=== PATIENT | female | born 1965 | race Caucasian/White ===

== ENCOUNTER 2018-01-07 15:55 | Emergency (ER) | payer OTHER ==
[2018-01-07 17:25] LABS: ABS Basophils 0.1 10^3/ul (0-0.2); ABS Eosinophils 0.1 10^3/ul (0-0.6); ABS Lymphocytes 1.9 10^3/ul (1.0-4.8); ABS Monocytes 0.5 10^3/ul (0-0.8); ABS Nucleated RBC 0 10^3/ul; Eosinophil % 1.5 % (0-6); Hematocrit 32 % (35-47); Hemoglobin 10.8 g/dl (12.0-16.0); Lymphocyte % 22.5 % (25-47); Mean Corpuscular HGB Conc 34 g/dl (31-36); Mean Corpuscular Hemoglobin 30 pg (27-31); Mean Corpuscular Volume 88 fL (80-97); Mean Platelet Volume 7.9 um3 (7.4-10.4); Nucleated Red Blood Cells % 0.2; Platelet Count 248 10^3/ul (150-450); Red Blood Count 3.56 10^6/ul (4.00-5.40); Red Cell Distribution Width 13 % (10.5-15); White Blood Count 8.6 10^3/ul (3.5-10.8)
[2018-01-07 17:41] LABS: EGFR Non-African American 112.8 (>60)
--- NOTE | 2018-01-07 18:52 | ED ---
GI/ HPI - HPI Summary HPI Summary: Patient complains of diarrhea yesterday and possible rectal bleeding starting this a.m. Patient states she is passing "blood clots". Denies history of same. Denies diarrhea today. Positive history of hemorrhoids. Denies pain with bowel movement. Blood is dark red, gelatinous. Denies fever, cough, sore throat, CP, SOB, N/V, abdominal pain, change in urine, vaginal symptoms. History is none. Abdominal surgical history is none. - History of Current Complaint Chief Complaint: EDGIBleed Time Seen by Provider: 01/07/18 17:08 Stated Complaint: BLOOD IN STOOL Hx Obtained From: Patient Onset/Duration: Started Hours Ago Timing: Intermittent Current Severity: None Vaginal Bleeding Description: Dark Red Pain Intensity: 0 Associated Signs and Symptoms: Positive: Blood w/Stool, Diarrhea - Allergy/Home Medications Allergies/Adverse Reactions: Allergies Allergy/AdvReac Type Severity Reaction Status Date / Time No Known Allergies Allergy Verified 01/07/18 16:03 PMH/Surg Hx/FS Hx/Imm Hx Endocrine/Hematology History: Denies: Hx Anticoagulant Therapy Cardiovascular History: Reports: Hx Hypertension - ON MEDS, WELL CONTROLLED Denies: Other Cardiovascular Problems/Disorders Respiratory History: Reports: Hx Asthma - WILL BRING INHALER Denies: Other Respiratory Problems/Disorders GI History: Reports: Hx Gastroesophageal Reflux Disease - ON DAILY MEDS Denies: Other GI Disorders Musculoskeletal History: Reports: Hx Arthritis - HANDS, KNEES, Hx Tendonitis - Hx OF LEFT ELBOW, OK CURRENTLY Sensory History: Denies: Hx Contacts or Glasses, Hx Hearing Aid Opthamlomology History: Denies: Hx Contacts or Glasses Neurological History: Reports: Hx Migraine - HORMONE RELATED Denies: Other Neuro Impairments/Disorders - Cancer History Hx Chemotherapy: No Hx Radiation Therapy: No - Surgical History Surgery Procedure, Year, and Place: 2011, SINUS, [facility]. 2012, LIPOMA RIGHT SHOULDER, [facility]. 1967, BLADDER DILATION, [facility]. 08/2014 RIGHT CARPAL TUNNEL RELEASE [facility] Hx Anesthesia Reactions: No Infectious Disease History: No Infectious Disease History: Denies: Traveled Outside the [place] in Last 30 Days - Social History Alcohol Use: Occasionally Alcohol Amount: 3 PER MONTH Substance Use Type: Reports: None Smoking Status (MU): Never Smoked Tobacco Have You Smoked in the Last Year: No Review of Systems Constitutional: Negative Eyes: Negative ENT: Negative Cardiovascular: Negative Respiratory: Negative Gastrointestinal: Negative Genitourinary: Negative Musculoskeletal: Negative Skin: Negative Neurological: Negative Psychological: Normal All Other Systems Reviewed And Are Negative: Yes Physical Exam Triage Information Reviewed: Yes Vital Signs On Initial Exam: Initial Vitals Temp Pulse Resp BP Pulse Ox 97.7 F 78 14 177/93 99 01/07/18 15:59 01/07/18 15:59 01/07/18 15:59 01/07/18 15:59 01/07/18 15:59 Vital Signs Reviewed: Yes Appearance: Positive: Well-Appearing Skin: Positive: Warm Head/Face: Positive: Normal Head/Face Inspection Eyes: Positive: Normal Neck: Positive: Supple Respiratory/Lung Sounds: Positive: Clear to Auscultation Cardiovascular: Positive: Normal Abdomen Description: Positive: Nontender Musculoskeletal: Positive: Normal Neurological: Positive: Normal Psychiatric: Positive: Normal AVPU Assessment: Alert - Dinora Coma Scale Best Eye Response: 4 - Spontaneous Best Motor Response: 6 - Obeys Commands Best Verbal Response: 5 - Oriented Coma Scale Total: 15 Diagnostics - Vital Signs Vital Signs Temp Pulse Resp BP Pulse Ox 01/07/18 18:07 74 135/90 98 01/07/18 18:00 75 98 01/07/18 17:37 76 149/89 97 01/07/18 17:04 80 97 01/07/18 15:59 97.7 F 78 14 177/93 99 - Laboratory Lab Results: Lab Results 01/07/18 01/07/18 Range/Units 17:14 17:14 WBC 8.6 (3.5-10.8) 10^3/ul RBC 3.56 L (4.00-5.40) 10^6/ul Hgb 10.8 L (12.0-16.0) g/dl Hct 32 L (35-47) % MCV 88 (80-97) fL MCH 30 (27-31) pg MCHC 34 (31-36) g/dl RDW 13 (10.5-15) % Plt Count 248 (150-450) 10^3/ul MPV 7.9 (7.4-10.4) um3 Neut % (Auto) 69.3 (38-83) % Lymph % (Auto) 22.5 L (25-47) % [place] % (Auto) 6.0 (0-7) % Eos % (Auto) 1.5 (0-6) % Baso % (Auto) 0.7 (0-2) % Absolute Neuts (auto) 6.0 (1.5-7.7) 10^3/ul Absolute Lymphs (auto) 1.9 (1.0-4.8) 10^3/ul Absolute Monos (auto) 0.5 (0-0.8) 10^3/ul Absolute Eos (auto) 0.1 (0-0.6) 10^3/ul Absolute Basos (auto) 0.1 (0-0.2) 10^3/ul Absolute Nucleated RBC 0 10^3/ul Nucleated RBC % 0.2 Sodium 139 (135-145) mmol/L Potassium 3.5 (3.5-5.0) mmol/L Chloride 106 (101-111) mmol/L Carbon Dioxide 27 (22-32) mmol/L Anion Gap 6 (2-11) mmol/L BUN 13 (6-24) mg/dL Creatinine 0.56 (0.51-0.95) mg/dL Est GFR ( Amer) 136.5 (>60) Est GFR (Non-Af Amer) 112.8 (>60) BUN/Creatinine Ratio 23.2 H (8-20) Glucose 106 H (70-100) mg/dL Calcium 9.0 (8.6-10.3) mg/dL Total Bilirubin 0.40 (0.2-1.0) mg/dL AST 16 (13-39) U/L ALT 17 (7-52) U/L Alkaline Phosphatase 63 (34-104) U/L C-Reactive Protein 3.05 (<8.01) mg/L Total Protein 6.2 L (6.4-8.9) g/dL Albumin 3.9 (3.2-5.2) g/dL Globulin 2.3 (2-4) g/dL Albumin/Globulin Ratio 1.7 (1-3) Result Diagrams: 01/07/18 17:14 01/07/18 17:14 Lab Statement: Any lab studies that have been ordered have been reviewed, and results considered in the medical decision making process. GIGU Course/Dx - Course Course Of Treatment: Patient complains of diarrhea yesterday and possible rectal bleeding starting this a.m. Patient states she is passing "blood clots". Denies history of same. Denies diarrhea today. Positive history of hemorrhoids. Denies pain with bowel movement. Blood is dark red, gelatinous. Denies fever, cough, sore throat, CP, SOB, N/V, abdominal pain, change in urine , vaginal symptoms. History is none. Abdominal surgical history is none. Vital signs within normal limits. Patient brought sample of "blood clot" which appeared dark red. Hemoccult negative. Hemoglobin 10.8. Only prior H&H comparison data from 2014. Advised patient to return for any concerning symptoms including weakness, shortness of breath, fatigue, persistent bleeding. Advise follow-up with GI tomorrow morning. Patient understands and approves plan - Diagnoses Provider Diagnoses: Rectal bleed Discharge - Sign-Out/Discharge Documenting (check all that apply): Patient Departure - Discharge Plan Condition: Stable Disposition: HOME Patient Education Materials: Rectal Bleeding (ED) Referrals: Sarkis Brady MD [Primary Care Provider] - Nilson Walters MD [Medical Doctor] - Additional Instructions: Follow-up on Monday with either primary care or gastroenterology Dr. Walters for further evaluation of possible rectal bleeding. Return to the ED for any new or worsening symptoms - Billing Disposition and Condition Condition: STABLE Disposition: Home
[2018-01-07 19:18] VITALS: BP 143/85
== END 2018-01-07 19:17 | disposition home or self-care (01) ==
LOC: ED 15:55
DX: K62.5 Hemorrhage of anus and rectum (principal); I10 Essential (primary) hypertension; J45.909 Unspecified asthma, uncomplicated; K21.9 Gastro-esophageal reflux disease without esophagitis
CPT/HCPCS: 36415; 80053; 82270; 85025; 86140; 99282

== ENCOUNTER 2020-03-09 05:12 | Inpatient (IN) ==
[2020-03-09] MEDS ORDERED: Ondansetron 4 mg VIAL 2 MG/ML 2 ml VIAL IV ONE (06:43)
[2020-03-09 07:41] LABS: Albumin 2.2 g/dL (3.2-5.2); Albumin/Globulin Ratio 0.8 (1-3); BUN/Creatinine Ratio 45.5 (8-20); C Reactive Protein 335.2 mg/L (<8.01); Calcium 7.9 mg/dL (8.6-10.3); EGFR African American 138.3 (>60); EGFR Non-African American 114.3 (>60); Globulin 2.9 g/dL (2-4); Magnesium 1.9 mg/dL (1.9-2.7); Potassium 4.9 mmol/L (3.5-5.0); Total Bilirubin 0.5 mg/dL (0.2-1.0); Total Protein 5.1 g/dL (6.4-8.9)
[2020-03-09 07:43] LABS: Troponin I 0.39 ng/mL (<0.03)
[2020-03-09] MEDS ORDERED: NS 0.9% 1000 ml BAG 1,000 ML IV ONE ×2 (07:46→08:08)
[2020-03-09 07:52] LABS: Hematocrit 38 % (35-47); Hemoglobin 12.3 g/dL (12.0-16.0); Mean Corpuscular HGB Conc 33 g/dL (31-36); Mean Corpuscular Hemoglobin 28 pg (27-31); Mean Corpuscular Volume 84 fL (80-97); Red Blood Count 4.47 10^6 /uL (3.70-4.87); Red Cell Distribution Width 14 % (10-15); White Blood Count 1.6 10^3/uL (3.5-10.8)
[2020-03-09] MEDS ORDERED: Iohexol 350 (CONTRAST) 500 ML MDV IV ONE (08:04)
[2020-03-09 08:09] LABS: TSH Ultra Thyroid Stim Horm 3.49 mcIU/mL (0.34-5.60)
[2020-03-09 08:51] LABS: ABS Lymphocytes 0.3 10^3/ul (1.0-4.8); ABS Monocytes 0.2 10^3/ul (0-0.8); ABS Neutrophils 1.1 10^3/ul (1.5-7.7); Eosinophil % 0.4 %; Lymphocyte % 19.8 %; Mean Platelet Volume 7.3 fL (7.4-10.4); Nucleated Red Blood Cells % 0.1; Platelet Count 72 10^3/uL (150-450)
[2020-03-09] MEDS ORDERED: Enoxaparin 80 MG/0.8 ML SYR SUBCUT ONE (10:07)
[2020-03-09 10:36] LABS: Troponin I 0.54 ng/mL (<0.03)
[2020-03-09] MEDS ORDERED: Enoxaparin 80 MG/0.8 ML SYR SUBCUT SCH (12:00)
[2020-03-09 14:17] LABS: ABS Lymphocytes 0.4 10^3/ul (1.0-4.8); ABS Monocytes 0.2 10^3/ul (0-0.8); ABS Neutrophils 0.8 10^3/ul (1.5-7.7); Eosinophil % 1.1 %; Hematocrit 33 % (35-47); Hemoglobin 10.8 g/dL (12.0-16.0); Lymphocyte % 29.4 %; Mean Corpuscular HGB Conc 33 g/dL (31-36); Mean Corpuscular Hemoglobin 28 pg (27-31); Mean Corpuscular Volume 84 fL (80-97); Mean Platelet Volume 7.6 fL (7.4-10.4); Nucleated Red Blood Cells % 0.1; Platelet Count 65 10^3/uL (150-450); Red Blood Count 3.87 10^6 /uL (3.70-4.87); Red Cell Distribution Width 15 % (10-15); White Blood Count 1.5 10^3/uL (3.5-10.8)
[2020-03-09] MEDS: NS 0.9% 1000 ml BAG 1,000 ML IV SCH ×2 (14:51→21:42)
[2020-03-09 19:11] LABS: Urine Appearance Cloudy; Urine Bilirubin Negative (Negative); Urine Blood Negative (Negative); Urine Color Amber; Urine Glucose Negative (Negative); Urine Ketones Trace (Negative); Urine Nitrite Negative (Negative); Urine Protein 1+(30 mg/dL) (Negative); Urine Specific Gravity 1.053 (1.010-1.030); Urine Urobilinogen Negative (Negative)
[2020-03-09 19:18] LABS: Urine Bacteria Absent (Absent); Urine Red Blood Cell 3+(>10/hpf) (Absent); Urine Squamous Epithelial Cell Present (Absent); Urine Transitional Epithelial Present (Absent); Urine White Blood Cell 2+(11-20/hpf) (Absent)
[2020-03-09] MEDS: Enoxaparin 80 MG/0.8 ML SYR SUBCUT SCH (21:44)
[2020-03-09] MEDS: Magic MouthWash1-BEN/MAAL/LIDO 180 ML BTL SWISH SWAL SCH (21:50)
[2020-03-10] MEDS: NS 0.9% 1000 ml BAG 1,000 ML IV SCH ×3 (04:25→19:23)
[2020-03-10 05:56] LABS: Hematocrit 31 % (35-47); Hemoglobin 10.3 g/dL (12.0-16.0); Mean Corpuscular HGB Conc 33 g/dL (31-36); Mean Corpuscular Hemoglobin 28 pg (27-31); Mean Corpuscular Volume 84 fL (80-97); Mean Platelet Volume 8.3 fL (7.4-10.4); Nucleated Red Blood Cells % 0.2; Platelet Count 72 10^3/uL (150-450); Red Blood Count 3.69 10^6 /uL (3.70-4.87); Red Cell Distribution Width 15 % (10-15); White Blood Count 1.1 10^3/uL (3.5-10.8)
[2020-03-10 06:05] LABS: Albumin 1.7 g/dL (3.2-5.2); Magnesium 1.9 mg/dL (1.9-2.7)
[2020-03-10 06:11] LABS: Albumin/Globulin Ratio 0.6 (1-3); Globulin 2.7 g/dL (2-4); Total Protein 4.4 g/dL (6.4-8.9)
[2020-03-10 06:12] LABS: Potassium 4.7 mmol/L (3.5-5.0)
[2020-03-10 06:13] LABS: EGFR African American 150.9 (>60); EGFR Non-African American 124.7 (>60); Total Bilirubin 0.3 mg/dL (0.2-1.0)
[2020-03-10 06:30] LABS: Calcium 6.8 mg/dL (8.6-10.3)
[2020-03-10] MEDS: Magic MouthWash1-BEN/MAAL/LIDO 180 ML BTL SWISH SWAL SCH ×4 (08:30→20:46)
[2020-03-10] MEDS: Enoxaparin 80 MG/0.8 ML SYR SUBCUT SCH ×2 (08:30→20:47)
[2020-03-10 08:35] LABS: ABS Lymphocytes 0.4 10^3/ul (1.0-4.8); ABS Monocytes 0.3 10^3/ul (0-0.8); ABS Neutrophils 0.4 10^3/ul (1.5-7.7); Lymphocyte % 35.9 %
[2020-03-10 14:58] LABS: Troponin I 1.12 ng/mL (<0.03)
[2020-03-11] MEDS: NS 0.9% 1000 ml BAG 1,000 ML IV SCH ×4 (02:25→23:05)
[2020-03-11 06:18] LABS: ABS Lymphocytes 0.4 10^3/ul (1.0-4.8); ABS Monocytes 0.6 10^3/ul (0-0.8); ABS Neutrophils 1.6 10^3/ul (1.5-7.7); Eosinophil % 0.4 %; Hematocrit 30 % (35-47); Mean Corpuscular HGB Conc 33 g/dL (31-36); Mean Corpuscular Hemoglobin 28 pg (27-31); Mean Corpuscular Volume 83 fL (80-97); Nucleated Red Blood Cells % 0.6; Platelet Count 95 10^3/uL (150-450); Red Blood Count 3.61 10^6 /uL (3.70-4.87); Red Cell Distribution Width 15 % (10-15); White Blood Count 2.6 10^3/uL (3.5-10.8)
[2020-03-11 07:11] LABS: Albumin 1.7 g/dL (3.2-5.2); Anion Gap 9 mmol/L (2-11); CO2 Carbon Dioxide 19 mmol/L (22-32); Calcium 6.9 mg/dL (8.6-10.3); Chloride 106 mmol/L (101-111); Magnesium 1.8 mg/dL (1.9-2.7); Potassium 4.1 mmol/L (3.5-5.0); Sodium 134 mmol/L (135-145)
[2020-03-11 07:17] LABS: ALT 29 U/L (7-52); AST 51 U/L (13-39); Albumin/Globulin Ratio 0.8 (1-3); Alkaline Phosphatase 126 U/L (34-104); BUN/Creatinine Ratio 70.7 (8-20); Blood Urea Nitrogen 29 mg/dL (6-24); EGFR African American 194.2 (>60); EGFR Non-African American 160.5 (>60); Globulin 2.2 g/dL (2-4); Glucose 101 mg/dL (70-100); Total Protein 3.9 g/dL (6.4-8.9)
[2020-03-11 07:21] LABS: Troponin I 0.69 ng/mL (<0.03)
[2020-03-11] MEDS: Enoxaparin 80 MG/0.8 ML SYR SUBCUT SCH ×2 (09:30→21:07)
[2020-03-11] MEDS: Magic MouthWash1-BEN/MAAL/LIDO 180 ML BTL SWISH SWAL SCH ×4 (09:30→21:08)
[2020-03-11] MEDS ORDERED: TPN 24 HR with Sodium Chloride CONC. 4 MEQ/ML 100 MEQ, Potassium Chloride TPN 50 MEQ, P... CENT\\PICC SCH (17:00)
[2020-03-12] MEDS: NS 0.9% 1000 ml BAG 1,000 ML IV SCH (04:47)
[2020-03-12 05:52] LABS: Hematocrit 29 % (35-47); Hemoglobin 9.6 g/dL (12.0-16.0); Mean Corpuscular HGB Conc 33 g/dL (31-36); Mean Corpuscular Hemoglobin 28 pg (27-31); Mean Corpuscular Volume 83 fL (80-97); Mean Platelet Volume 8.4 fL (7.4-10.4); Platelet Count 120 10^3/uL (150-450); Red Blood Count 3.46 10^6 /uL (3.70-4.87); Red Cell Distribution Width 15 % (10-15); White Blood Count 13.7 10^3/uL (3.5-10.8)
[2020-03-12 06:10] LABS: Albumin 1.9 g/dL (3.2-5.2); Albumin/Globulin Ratio 0.8 (1-3); BUN/Creatinine Ratio 80.5 (8-20); Calcium 7.5 mg/dL (8.6-10.3); EGFR African American 194.2 (>60); EGFR Non-African American 160.5 (>60); Globulin 2.5 g/dL (2-4); Magnesium 1.8 mg/dL (1.9-2.7); Potassium 3.9 mmol/L (3.5-5.0); Total Bilirubin 0.3 mg/dL (0.2-1.0); Total Protein 4.4 g/dL (6.4-8.9)
[2020-03-12 09:51] LABS: ABS Lymphocytes 0.7 10^3/ul (1.0-4.8); Eosinophil % 0.1 %; Lymphocyte % 5.1 %; Nucleated Red Blood Cells % 0.2
[2020-03-12] MEDS: Enoxaparin 80 MG/0.8 ML SYR SUBCUT SCH ×2 (09:51→20:45)
[2020-03-12] MEDS ORDERED: Al Hydrox/Mg Hydrox/Simet LIQ 30 ML UDC PO ONE (09:59)
[2020-03-12] MEDS ORDERED: Al Hydrox/Mg Hydrox/Simet LIQ 30 ML UDC ONE (10:05)
[2020-03-12] MEDS: Pantoprazole VIAL 40 MG VIAL IV SCH (10:11)
[2020-03-12] MEDS: Magic MouthWash1-BEN/MAAL/LIDO 180 ML BTL SWISH SWAL SCH ×4 (10:14→20:40)
[2020-03-12 11:11] LABS: INR 1.76 (0.82-1.09)
[2020-03-12] MEDS: TPN 24 HR with Dextrose 50% Water 500 ML, Amino Acid Infusion 10% 850 ML, Sterile Water... CENTR SCH (17:09)
[2020-03-12] MEDS: Al Hydrox/Mg Hydrox/Simet LIQ 30 ML UDC PO PRN (20:45)
[2020-03-13 06:37] LABS: Hematocrit 30 % (35-47); Hemoglobin 9.6 g/dL (12.0-16.0); Mean Corpuscular HGB Conc 33 g/dL (31-36); Mean Corpuscular Hemoglobin 27 pg (27-31); Mean Corpuscular Volume 84 fL (80-97); Mean Platelet Volume 7.9 fL (7.4-10.4); Platelet Count 116 10^3/uL (150-450); Red Blood Count 3.51 10^6 /uL (3.70-4.87); Red Cell Distribution Width 15 % (10-15); White Blood Count 25.4 10^3/uL (3.5-10.8)
[2020-03-13 06:53] LABS: Albumin 1.7 g/dL (3.2-5.2); Albumin/Globulin Ratio 0.7 (1-3); BUN/Creatinine Ratio 83.3 (8-20); Calcium 7.7 mg/dL (8.6-10.3); EGFR African American 225.6 (>60); EGFR Non-African American 186.5 (>60); Globulin 2.4 g/dL (2-4); Potassium 4.2 mmol/L (3.5-5.0); Total Bilirubin 0.2 mg/dL (0.2-1.0); Total Protein 4.1 g/dL (6.4-8.9)
[2020-03-13] MEDS: Magic MouthWash1-BEN/MAAL/LIDO 180 ML BTL SWISH SWAL SCH ×4 (09:48→22:11)
[2020-03-13] MEDS: Pantoprazole VIAL 40 MG VIAL IV SCH (09:48)
[2020-03-13] MEDS: Enoxaparin 80 MG/0.8 ML SYR SUBCUT SCH ×2 (09:50→21:18)
[2020-03-13 10:57] LABS: ABS Lymphocytes 1.1 10^3/ul (1.0-4.8); ABS Monocytes 1.5 10^3/ul (0-0.8); ABS Neutrophils 22.7 10^3/ul (1.5-7.7); Eosinophil % 0.2 %; Lymphocyte % 4.4 %
[2020-03-13 11:29] LABS: Albumin 1.6 g/dL (3.2-5.2); Calcium 7.5 mg/dL (8.6-10.3); Magnesium 1.9 mg/dL (1.9-2.7); Potassium 4.2 mmol/L (3.5-5.0); Total Bilirubin 0.2 mg/dL (0.2-1.0)
[2020-03-13 11:35] LABS: Albumin/Globulin Ratio 0.8 (1-3); BUN/Creatinine Ratio 86.1 (8-20); EGFR African American 225.6 (>60); EGFR Non-African American 186.5 (>60); Phosphorus 1.3 mg/dL (2.5-5.0); Total Protein 3.6 g/dL (6.4-8.9)
[2020-03-13] MEDS: TPN 24 HR with Dextrose 50% Water 500 ML, Amino Acid Infusion 10% 850 ML, Sterile Water... CENTR SCH (16:49)
[2020-03-13] MEDS: Al Hydrox/Mg Hydrox/Simet LIQ 30 ML UDC PO PRN (21:17)
[2020-03-14 07:30] LABS: Hematocrit 31 % (35-47); Mean Corpuscular HGB Conc 32 g/dL (31-36); Mean Corpuscular Hemoglobin 27 pg (27-31); Mean Corpuscular Volume 84 fL (80-97); Mean Platelet Volume 7.8 fL (7.4-10.4); Platelet Count 131 10^3/uL (150-450); Red Blood Count 3.72 10^6 /uL (3.70-4.87); Red Cell Distribution Width 15 % (10-15); White Blood Count 32.7 10^3/uL (3.5-10.8)
[2020-03-14 07:49] LABS: ALT 62 U/L (7-52); AST 67 U/L (13-39); Albumin 1.8 g/dL (3.2-5.2); Albumin/Globulin Ratio 0.7 (1-3); Alkaline Phosphatase 195 U/L (34-104); Anion Gap 3 mmol/L (2-11); Blood Urea Nitrogen 24 mg/dL (6-24); CO2 Carbon Dioxide 23 mmol/L (22-32); Calcium 7.9 mg/dL (8.6-10.3); Chloride 110 mmol/L (101-111); Cholesterol 104 mg/dL; EGFR African American 278.5 (>60); EGFR Non-African American 230.1 (>60); Globulin 2.5 g/dL (2-4); Glucose 97 mg/dL (70-100); Magnesium 1.8 mg/dL (1.9-2.7); Phosphorus 1.2 mg/dL (2.5-5.0); Potassium 4.1 mmol/L (3.5-5.0); Prealbumin 8 mg/dL (18-38); Sodium 136 mmol/L (135-145); Total Protein 4.3 g/dL (6.4-8.9); Triglycerides 195 mg/dL
[2020-03-14 08:44] LABS: ABS Lymphocytes 1.5 10^3/ul (1.0-4.8); ABS Monocytes 1.4 10^3/ul (0-0.8); ABS Neutrophils 29.8 10^3/ul (1.5-7.7); Eosinophil % 0.1 %; Lymphocyte % 4.5 %
[2020-03-14] MEDS: Pantoprazole VIAL 40 MG VIAL IV SCH (10:10)
[2020-03-14] MEDS: Enoxaparin 80 MG/0.8 ML SYR SUBCUT SCH ×2 (10:10→20:34)
[2020-03-14] MEDS: Magic MouthWash1-BEN/MAAL/LIDO 180 ML BTL SWISH SWAL SCH ×4 (10:10→20:34)
[2020-03-14] MEDS ORDERED: TPN CENTRAL STANDARD BASE A CENTR SCH (17:00)
[2020-03-15 05:24] LABS: Hematocrit 32 % (35-47); Hemoglobin 10.4 g/dL (12.0-16.0); Mean Corpuscular HGB Conc 33 g/dL (31-36); Mean Corpuscular Hemoglobin 28 pg (27-31); Mean Corpuscular Volume 83 fL (80-97); Mean Platelet Volume 8.2 fL (7.4-10.4); Platelet Count 141 10^3/uL (150-450); Red Blood Count 3.78 10^6 /uL (3.70-4.87); Red Cell Distribution Width 16 % (10-15); White Blood Count 32.3 10^3/uL (3.5-10.8)
[2020-03-15 05:43] LABS: ALT 66 U/L (7-52); AST 68 U/L (13-39); Albumin 1.9 g/dL (3.2-5.2); Albumin/Globulin Ratio 0.7 (1-3); Alkaline Phosphatase 206 U/L (34-104); Anion Gap 4 mmol/L (2-11); Blood Urea Nitrogen 23 mg/dL (6-24); CO2 Carbon Dioxide 22 mmol/L (22-32); Calcium 7.9 mg/dL (8.6-10.3); Chloride 110 mmol/L (101-111); Cholesterol 119 mg/dL; EGFR African American 278.5 (>60); EGFR Non-African American 230.1 (>60); Globulin 2.6 g/dL (2-4); Glucose 95 mg/dL (70-100); Magnesium 1.8 mg/dL (1.9-2.7); Potassium 4.1 mmol/L (3.5-5.0); Sodium 136 mmol/L (135-145); Total Protein 4.5 g/dL (6.4-8.9); Triglycerides 231 mg/dL
[2020-03-15 06:11] LABS: Prealbumin 10 mg/dL (18-38)
[2020-03-15 06:45] LABS: ABS Basophils 0.1 10^3/ul (0-0.2); ABS Eosinophils 0.1 10^3/ul (0-0.6); ABS Lymphocytes 1.5 10^3/ul (1.0-4.8); ABS Monocytes 1.3 10^3/ul (0-0.8); ABS Neutrophils 29.4 10^3/ul (1.5-7.7); Eosinophil % 0.2 %; Lymphocyte % 4.6 %; Platelet Morphology Large; Polychromasia 1+
[2020-03-15] MEDS: Enoxaparin 80 MG/0.8 ML SYR SUBCUT SCH ×2 (08:32→21:57)
[2020-03-15] MEDS: Pantoprazole VIAL 40 MG VIAL IV SCH (08:32)
[2020-03-15] MEDS: Magic MouthWash1-BEN/MAAL/LIDO 180 ML BTL SWISH SWAL SCH ×4 (08:33→20:16)
[2020-03-15] MEDS: Al Hydrox/Mg Hydrox/Simet LIQ 30 ML UDC PO PRN (16:14)
[2020-03-15] MEDS ORDERED: [UNRECOGNIZED DRUG - OTHER] CENT\\PICC SCH (17:00)
[2020-03-15] MEDS ORDERED: LIPID EMULSION 20% CENTR SCH (17:00)
[2020-03-15] MEDS ORDERED: TPN CENT\\PICC SCH (17:00)
[2020-03-15] MEDS ORDERED: AMINO ACIDS CENT\\PICC SCH (17:00)
[2020-03-15] MEDS ORDERED: SODIUM CHLORIDE TPN CENT\\PICC SCH (17:00)
[2020-03-16 05:59] LABS: ALT 97 U/L (7-52); AST 91 U/L (13-39); Albumin 1.9 g/dL (3.2-5.2); Albumin/Globulin Ratio 0.7 (1-3); Alkaline Phosphatase 222 U/L (34-104); Anion Gap 4 mmol/L (2-11); Blood Urea Nitrogen 24 mg/dL (6-24); CO2 Carbon Dioxide 22 mmol/L (22-32); Calcium 7.4 mg/dL (8.6-10.3); Chloride 109 mmol/L (101-111); Cholesterol 123 mg/dL; EGFR African American 278.5 (>60); EGFR Non-African American 230.1 (>60); Globulin 2.7 g/dL (2-4); Glucose 105 mg/dL (70-100); Phosphorus 2.3 mg/dL (2.5-5.0); Potassium 4.1 mmol/L (3.5-5.0); Sodium 135 mmol/L (135-145); Total Protein 4.6 g/dL (6.4-8.9); Triglycerides 168 mg/dL
[2020-03-16 06:38] LABS: Prealbumin 10 mg/dL (18-38)
[2020-03-16] MEDS: Enoxaparin 80 MG/0.8 ML SYR SUBCUT SCH ×2 (09:57→22:08)
[2020-03-16] MEDS: Pantoprazole VIAL 40 MG VIAL IV SCH (09:57)
[2020-03-16] MEDS: Magic MouthWash1-BEN/MAAL/LIDO 180 ML BTL SWISH SWAL SCH ×4 (09:57→22:10)
[2020-03-17 04:57] LABS: Hematocrit 28 % (35-47); Hemoglobin 9.2 g/dL (12.0-16.0); Mean Corpuscular HGB Conc 33 g/dL (31-36); Mean Corpuscular Hemoglobin 27 pg (27-31); Mean Corpuscular Volume 83 fL (80-97); Mean Platelet Volume 8.1 fL (7.4-10.4); Platelet Count 195 10^3/uL (150-450); Red Blood Count 3.39 10^6 /uL (3.70-4.87); Red Cell Distribution Width 15 % (10-15)
[2020-03-17 05:16] LABS: ALT 94 U/L (7-52); AST 79 U/L (13-39); Albumin 1.9 g/dL (3.2-5.2); Albumin/Globulin Ratio 0.7 (1-3); Alkaline Phosphatase 203 U/L (34-104); Anion Gap 5 mmol/L (2-11); Blood Urea Nitrogen 28 mg/dL (6-24); CO2 Carbon Dioxide 23 mmol/L (22-32); Calcium 7.4 mg/dL (8.6-10.3); Chloride 109 mmol/L (101-111); Cholesterol 119 mg/dL; EGFR African American 278.5 (>60); EGFR Non-African American 230.1 (>60); Globulin 2.6 g/dL (2-4); Glucose 91 mg/dL (70-100); Magnesium 1.8 mg/dL (1.9-2.7); Phosphorus 2.6 mg/dL (2.5-5.0); Potassium 3.7 mmol/L (3.5-5.0); Sodium 137 mmol/L (135-145); Total Protein 4.5 g/dL (6.4-8.9); Triglycerides 200 mg/dL
[2020-03-17 05:17] LABS: Prealbumin 10 mg/dL (18-38)
[2020-03-17 06:09] LABS: ABS Basophils 0.1 10^3/ul (0-0.2); ABS Eosinophils 0.1 10^3/ul (0-0.6); ABS Lymphocytes 1.2 10^3/ul (1.0-4.8); ABS Monocytes 1.4 10^3/ul (0-0.8); ABS Neutrophils 21.3 10^3/ul (1.5-7.7); Eosinophil % 0.2 %; Lymphocyte % 5.1 %; Platelet Morphology Large; Polychromasia 1+
[2020-03-17] MEDS: Al Hydrox/Mg Hydrox/Simet LIQ 30 ML UDC PO PRN (06:12)
[2020-03-17] MEDS: Magic MouthWash1-BEN/MAAL/LIDO 180 ML BTL SWISH SWAL SCH ×4 (09:23→21:00)
[2020-03-17] MEDS: Pantoprazole VIAL 40 MG VIAL IV SCH (09:23)
[2020-03-17] MEDS: Enoxaparin 80 MG/0.8 ML SYR SUBCUT SCH ×2 (09:23→21:00)
[2020-03-18 06:13] LABS: Hematocrit 26 % (35-47); Hemoglobin 8.7 g/dL (12.0-16.0); Mean Corpuscular HGB Conc 33 g/dL (31-36); Mean Corpuscular Hemoglobin 27 pg (27-31); Mean Corpuscular Volume 83 fL (80-97); Mean Platelet Volume 7.6 fL (7.4-10.4); Platelet Count 295 10^3/uL (150-450); Red Blood Count 3.19 10^6 /uL (3.70-4.87); Red Cell Distribution Width 16 % (10-15); White Blood Count 18.8 10^3/uL (3.5-10.8)
[2020-03-18 06:40] LABS: ALT 85 U/L (7-52); AST 69 U/L (13-39); Albumin/Globulin Ratio 0.8 (1-3); Alkaline Phosphatase 175 U/L (34-104); Anion Gap 3 mmol/L (2-11); Blood Urea Nitrogen 30 mg/dL (6-24); CO2 Carbon Dioxide 25 mmol/L (22-32); Calcium 7.8 mg/dL (8.6-10.3); Chloride 110 mmol/L (101-111); Cholesterol 115 mg/dL; EGFR African American 278.5 (>60); EGFR Non-African American 230.1 (>60); Globulin 2.5 g/dL (2-4); Glucose 85 mg/dL (70-100); Magnesium 1.8 mg/dL (1.9-2.7); Phosphorus 2.7 mg/dL (2.5-5.0); Potassium 3.8 mmol/L (3.5-5.0); Prealbumin 9 mg/dL (18-38); Sodium 138 mmol/L (135-145); Total Protein 4.5 g/dL (6.4-8.9); Triglycerides 178 mg/dL
[2020-03-18 06:59] LABS: ABS Monocytes 0.9 10^3/ul (0-0.8); ABS Neutrophils 16.8 10^3/ul (1.5-7.7); Eosinophil % 0.1 %; Lymphocyte % 5.2 %
[2020-03-18] MEDS: Pantoprazole VIAL 40 MG VIAL IV SCH (08:40)
[2020-03-18] MEDS: Magic MouthWash1-BEN/MAAL/LIDO 180 ML BTL SWISH SWAL SCH (08:40)
[2020-03-18 08:57] VITALS: BP 130/78
[2020-03-18] MEDS ORDERED: Enoxaparin 80 MG/0.8 ML SYR SUBCUT SCH (22:00)
== END 2020-03-18 15:30 | disposition home or self-care (01) | DRG 175 ==
LOC: ED 05:12 → MEDTELE 11:06
PROVIDERS: ADMIT Internal Medicine Hematology & Oncology; ATTEND Internal Medicine Hematology & Oncology

== ENCOUNTER 2020-03-19 15:13 | Inpatient (IN) ==
[2020-03-19 16:21] LABS: Hematocrit 33 % (35-47); Hemoglobin 10.7 g/dL (12.0-16.0); Mean Corpuscular HGB Conc 32 g/dL (31-36); Mean Corpuscular Hemoglobin 27 pg (27-31); Mean Corpuscular Volume 85 fL (80-97); Mean Platelet Volume 7.5 fL (7.4-10.4); Platelet Count 361 10^3/uL (150-450); Red Blood Count 3.92 10^6 /uL (3.70-4.87); Red Cell Distribution Width 16 % (10-15); White Blood Count 23.3 10^3/uL (3.5-10.8)
[2020-03-19 16:32] LABS: ALT 66 U/L (7-52); AST 51 U/L (13-39); Albumin 2.2 g/dL (3.2-5.2); Albumin/Globulin Ratio 0.8 (1-3); Alkaline Phosphatase 181 U/L (34-104); Blood Urea Nitrogen 32 mg/dL (6-24); Calcium 7.8 mg/dL (8.6-10.3); Chloride 107 mmol/L (101-111); Globulin 2.9 g/dL (2-4); Glucose 93 mg/dL (70-100); Potassium 4.4 mmol/L (3.5-5.0); Sodium 138 mmol/L (135-145); Total Protein 5.1 g/dL (6.4-8.9)
[2020-03-19 16:38] LABS: Troponin I 0.07 ng/mL (<0.03)
[2020-03-19 16:46] LABS: TSH Ultra Thyroid Stim Horm 4.82 mcIU/mL (0.34-5.60)
[2020-03-19 16:49] LABS: Anion Gap 8 mmol/L (2-11); CO2 Carbon Dioxide 23 mmol/L (22-32); Magnesium 1.8 mg/dL (1.9-2.7)
[2020-03-19 16:55] LABS: BUN/Creatinine Ratio 94.1 (8-20); EGFR Non-African American 199.2 (>60)
[2020-03-19 17:17] LABS: ABS Basophils 0.1 10^3/ul (0-0.2); ABS Lymphocytes 1.1 10^3/ul (1.0-4.8); ABS Monocytes 0.8 10^3/ul (0-0.8); ABS Neutrophils 21.4 10^3/ul (1.5-7.7); Eosinophil % 0.1 %; Lymphocyte % 4.6 %; Nucleated Red Blood Cells % 0.1
[2020-03-19 18:08] LABS: C Reactive Protein 180.51 mg/L (<8.01)
[2020-03-19] MEDS ORDERED: Piperacillin/Tazobac ADVAN 3.375 GM in NS 0.9% 100 ml BAG 100 ML IV ONE (18:15)
[2020-03-19] MEDS: NS 0.9% IV ONE ×2 (18:40→19:31)
[2020-03-19] MEDS ORDERED: Gadobenate (CONTRAST) 529 MG/ML 10 ML SDV IV ONE (19:56)
[2020-03-19 23:25] LABS: Cholesterol 128 mg/dL; HDL Cholesterol 23.7 mg/dL; LDL Cholesterol 72 mg/dL; Triglycerides 161 mg/dL
[2020-03-19 23:43] LABS: Vitamin B12 1213 pg/mL (180-914)
[2020-03-20 05:18] LABS: Urine Appearance Cloudy; Urine Bilirubin Negative (Negative); Urine Blood Negative (Negative); Urine Color Amber; Urine Glucose Negative (Negative); Urine Ketones Trace (Negative); Urine Nitrite Negative (Negative); Urine Protein Negative (Negative); Urine Specific Gravity 1.029 (1.010-1.030); Urine Urobilinogen Negative (Negative)
[2020-03-20 05:55] LABS: Urine Bacteria Absent (Absent); Urine Red Blood Cell Absent (Absent); Urine Squamous Epithelial Cell Present (Absent); Urine White Blood Cell 3+(>20/hpf) (Absent)
[2020-03-20 08:23] LABS: Hematocrit 28 % (35-47); Hemoglobin 9.3 g/dL (12.0-16.0); Mean Corpuscular HGB Conc 33 g/dL (31-36); Mean Corpuscular Hemoglobin 28 pg (27-31); Mean Corpuscular Volume 84 fL (80-97); Mean Platelet Volume 7.2 fL (7.4-10.4); Platelet Count 358 10^3/uL (150-450); Red Blood Count 3.36 10^6 /uL (3.70-4.87); Red Cell Distribution Width 16 % (10-15); White Blood Count 21.5 10^3/uL (3.5-10.8)
[2020-03-20 09:15] LABS: Polychromasia 1+
[2020-03-20 09:16] LABS: ABS Basophils 0.1 10^3/ul (0-0.2); ABS Lymphocytes 0.9 10^3/ul (1.0-4.8); ABS Monocytes 0.9 10^3/ul (0-0.8); ABS Neutrophils 19.5 10^3/ul (1.5-7.7); Lymphocyte % 4.4 %; Nucleated Red Blood Cells % 0.1
[2020-03-21] MEDS: Al Hydrox/Mg Hydrox/Simet LIQ 30 ML UDC PO PRN (17:34)
[2020-03-22 07:06] LABS: Hematocrit 30 % (35-47); Hemoglobin 9.8 g/dL (12.0-16.0); Mean Corpuscular HGB Conc 33 g/dL (31-36); Mean Corpuscular Hemoglobin 28 pg (27-31); Mean Corpuscular Volume 84 fL (80-97); Mean Platelet Volume 6.9 fL (7.4-10.4); Platelet Count 403 10^3/uL (150-450); Red Blood Count 3.54 10^6 /uL (3.70-4.87); Red Cell Distribution Width 15 % (10-15); White Blood Count 19.2 10^3/uL (3.5-10.8)
[2020-03-22 07:12] LABS: ABS Basophils 0.1 10^3/ul (0-0.2); ABS Lymphocytes 0.8 10^3/ul (1.0-4.8); ABS Monocytes 0.9 10^3/ul (0-0.8); ABS Neutrophils 17.4 10^3/ul (1.5-7.7); Eosinophil % 0.1 %; Lymphocyte % 4.3 %
[2020-03-22 07:41] LABS: Polychromasia 1+
[2020-03-22 07:47] LABS: Calcium 7.3 mg/dL (8.6-10.3); Magnesium 1.6 mg/dL (1.9-2.7); Potassium 3.7 mmol/L (3.5-5.0)
[2020-03-22 07:53] LABS: BUN/Creatinine Ratio 73.3 (8-20); EGFR African American 278.4 (>60); EGFR Non-African American 230.1 (>60)
[2020-03-22] MEDS ORDERED: Magnesium Sulf 4 GM/100 ML IV 4,000 MG/100 ML BAG IVPB ONE (08:09)
[2020-03-22] MEDS: Al Hydrox/Mg Hydrox/Simet LIQ 30 ML UDC PO PRN (20:57)
[2020-03-23 07:36] LABS: Calcium 7.2 mg/dL (8.6-10.3); Potassium 4.3 mmol/L (3.5-5.0); Total Bilirubin 0.3 mg/dL (0.2-1.0)
[2020-03-23 07:41] LABS: Hematocrit 34 % (35-47); Hemoglobin 10.5 g/dL (12.0-16.0); Mean Corpuscular HGB Conc 31 g/dL (31-36); Mean Corpuscular Hemoglobin 27 pg (27-31); Mean Corpuscular Volume 87 fL (80-97); Mean Platelet Volume 6.7 fL (7.4-10.4); Platelet Count 426 10^3/uL (150-450); Red Blood Count 3.87 10^6 /uL (3.70-4.87); Red Cell Distribution Width 16 % (10-15); White Blood Count 25.3 10^3/uL (3.5-10.8)
[2020-03-23 07:42] LABS: Albumin/Globulin Ratio 0.7 (1-3); BUN/Creatinine Ratio 78.1 (8-20); EGFR African American 258.5 (>60); EGFR Non-African American 213.6 (>60); Globulin 2.9 g/dL (2-4); Total Protein 4.9 g/dL (6.4-8.9)
[2020-03-23] MEDS: Al Hydrox/Mg Hydrox/Simet LIQ 30 ML UDC PO PRN ×2 (10:46→18:06)
[2020-03-24 08:05] LABS: Hematocrit 30 % (35-47); Hemoglobin 9.9 g/dL (12.0-16.0); Mean Corpuscular HGB Conc 33 g/dL (31-36); Mean Corpuscular Hemoglobin 28 pg (27-31); Mean Corpuscular Volume 85 fL (80-97); Mean Platelet Volume 6.6 fL (7.4-10.4); Platelet Count 379 10^3/uL (150-450); Red Blood Count 3.58 10^6 /uL (3.70-4.87); Red Cell Distribution Width 16 % (10-15); White Blood Count 21.4 10^3/uL (3.5-10.8)
[2020-03-24 08:20] LABS: Albumin 1.8 g/dL (3.2-5.2); Albumin/Globulin Ratio 0.7 (1-3); BUN/Creatinine Ratio 83.9 (8-20); Calcium 7.5 mg/dL (8.6-10.3); EGFR African American 268.1 (>60); EGFR Non-African American 221.6 (>60); Globulin 2.5 g/dL (2-4); Potassium 4.9 mmol/L (3.5-5.0); Total Bilirubin 0.3 mg/dL (0.2-1.0); Total Protein 4.3 g/dL (6.4-8.9)
[2020-03-24 09:28] LABS: ABS Basophils 0.1 10^3/ul (0-0.2); ABS Lymphocytes 1.2 10^3/ul (1.0-4.8); ABS Monocytes 1.2 10^3/ul (0-0.8); ABS Neutrophils 18.9 10^3/ul (1.5-7.7); Eosinophil % 0.1 %; Lymphocyte % 5.8 %
[2020-03-24] MEDS ORDERED: diPHENhydraMINE IV 50 MG/ML 1 ml VIAL (BENADRYL) SLOW PUSH PRN (11:55)
[2020-03-24] MEDS ORDERED: Famotidine IV 10 MG/ML 2 ml VIAL (20 mg) IV SLOW PU PRN (11:56)
[2020-03-24] MEDS ORDERED: methylPREDNISolone 125 mg 2 ML VIAL IV PRN (11:57)
[2020-03-24] MEDS ORDERED: APREPITANT 130 MG in Premix IV 0 ML IV ONE (12:00)
[2020-03-24] MEDS ORDERED: Famotidine IV 10 MG/ML 2 ml VIAL (20 mg) IV SLOW PU ONE (12:00)
[2020-03-24] MEDS ORDERED: Palonosetron 0.05 MG/ML 5 ML VIAL IV ONE (12:00)
[2020-03-24] MEDS ORDERED: PALONOSETRON HCL 0.05 MG/ML (0.25 MG) SYRINGE (0.05 MG/ML) IV ONE (12:00)
[2020-03-24] MEDS ORDERED: diPHENhydraMINE IV 50 MG/ML 1 ml VIAL (BENADRYL) SLOW PUSH ONE (12:00)
[2020-03-24] MEDS ORDERED: Dexamethasone IV 4 MG/ML VIAL 1 ml VIAL IV SLOW PU ONE (12:00)
[2020-03-24] MEDS ORDERED: PACLITAXEL IVPB ONE (12:30)
[2020-03-24] MEDS ORDERED: NS 0.9% IVPB ONE ×2 (12:30→15:30)
[2020-03-24] MEDS ORDERED: Dexamethasone IV 4 MG/ML 5 ML VIAL (20 MG) ONE (13:00)
[2020-03-24] MEDS ORDERED: CARBOPLATIN IVPB ONE (15:30)
[2020-03-25 06:00] LABS: Hematocrit 31 % (35-47); Hemoglobin 9.9 g/dL (12.0-16.0); Mean Corpuscular HGB Conc 32 g/dL (31-36); Mean Corpuscular Hemoglobin 27 pg (27-31); Mean Corpuscular Volume 85 fL (80-97); Mean Platelet Volume 7.1 fL (7.4-10.4); Platelet Count 377 10^3/uL (150-450); Red Cell Distribution Width 16 % (10-15)
[2020-03-25 06:17] LABS: Albumin 1.9 g/dL (3.2-5.2); Albumin/Globulin Ratio 0.7 (1-3); BUN/Creatinine Ratio 83.3 (8-20); Calcium 7.8 mg/dL (8.6-10.3); EGFR African American 278.4 (>60); EGFR Non-African American 230.1 (>60); Globulin 2.6 g/dL (2-4); Potassium 4.8 mmol/L (3.5-5.0); Total Bilirubin 0.4 mg/dL (0.2-1.0); Total Protein 4.5 g/dL (6.4-8.9)
[2020-03-25 08:42] LABS: ABS Lymphocytes 0.6 10^3/ul (1.0-4.8); ABS Monocytes 0.2 10^3/ul (0-0.8); ABS Neutrophils 16.1 10^3/ul (1.5-7.7); Lymphocyte % 3.6 %
[2020-03-26 06:40] LABS: ABS Lymphocytes 0.5 10^3/ul (1.0-4.8); ABS Monocytes 0.3 10^3/ul (0-0.8); ABS Neutrophils 17.9 10^3/ul (1.5-7.7); Hematocrit 30 % (35-47); Hemoglobin 9.7 g/dL (12.0-16.0); Lymphocyte % 2.5 %; Mean Corpuscular HGB Conc 33 g/dL (31-36); Mean Corpuscular Hemoglobin 28 pg (27-31); Mean Corpuscular Volume 84 fL (80-97); Mean Platelet Volume 7.1 fL (7.4-10.4); Platelet Count 371 10^3/uL (150-450); Red Blood Count 3.53 10^6 /uL (3.70-4.87); Red Cell Distribution Width 17 % (10-15); White Blood Count 18.7 10^3/uL (3.5-10.8)
[2020-03-26 06:56] LABS: Albumin 1.9 g/dL (3.2-5.2); Albumin/Globulin Ratio 0.7 (1-3); BUN/Creatinine Ratio 71.8 (8-20); Calcium 7.4 mg/dL (8.6-10.3); EGFR African American 205.7 (>60); Globulin 2.6 g/dL (2-4); Magnesium 1.8 mg/dL (1.9-2.7); Potassium 4.8 mmol/L (3.5-5.0); Total Bilirubin 0.4 mg/dL (0.2-1.0); Total Protein 4.5 g/dL (6.4-8.9)
[2020-03-26] MEDS: Dexamethasone IV 4 MG/ML VIAL 1 ml VIAL IV SLOW PU SCH (12:41)
[2020-03-26] MEDS: Magic MouthWash2-BEN/MAAL/LIDO/NYST 240 ML BTL (alt formulation) SWISH SPIT SCH ×3 (13:54→23:08)
[2020-03-27 05:21] LABS: ABS Lymphocytes 0.3 10^3/ul (1.0-4.8); ABS Monocytes 0.1 10^3/ul (0-0.8); ABS Neutrophils 19.3 10^3/ul (1.5-7.7); Hematocrit 29 % (35-47); Hemoglobin 9.7 g/dL (12.0-16.0); Lymphocyte % 1.5 %; Mean Corpuscular HGB Conc 33 g/dL (31-36); Mean Corpuscular Hemoglobin 28 pg (27-31); Mean Corpuscular Volume 83 fL (80-97); Mean Platelet Volume 7.4 fL (7.4-10.4); Platelet Count 325 10^3/uL (150-450); Red Blood Count 3.48 10^6 /uL (3.70-4.87); Red Cell Distribution Width 17 % (10-15); White Blood Count 19.7 10^3/uL (3.5-10.8)
[2020-03-27 05:38] LABS: Calcium 7.6 mg/dL (8.6-10.3); EGFR African American 225.6 (>60); EGFR Non-African American 186.5 (>60)
[2020-03-27 05:39] LABS: Potassium 5.3 mmol/L (3.5-5.0)
[2020-03-27 07:47] LABS: Magnesium 1.8 mg/dL (1.9-2.7); Phosphorus 2.2 mg/dL (2.5-5.0)
[2020-03-27] MEDS: Dexamethasone IV 4 MG/ML VIAL 1 ml VIAL IV SLOW PU SCH (08:27)
[2020-03-27] MEDS: Magic MouthWash2-BEN/MAAL/LIDO/NYST 240 ML BTL (alt formulation) SWISH SPIT SCH ×4 (08:35→20:45)
[2020-03-28 05:17] LABS: ABS Lymphocytes 0.5 10^3/ul (1.0-4.8); ABS Monocytes 0.1 10^3/ul (0-0.8); ABS Neutrophils 18.1 10^3/ul (1.5-7.7); Hematocrit 32 % (35-47); Hemoglobin 10.2 g/dL (12.0-16.0); Lymphocyte % 2.5 %; Mean Corpuscular HGB Conc 32 g/dL (31-36); Mean Corpuscular Hemoglobin 27 pg (27-31); Mean Corpuscular Volume 84 fL (80-97); Mean Platelet Volume 7.3 fL (7.4-10.4); Platelet Count 290 10^3/uL (150-450); Red Blood Count 3.75 10^6 /uL (3.70-4.87); Red Cell Distribution Width 16 % (10-15); White Blood Count 18.7 10^3/uL (3.5-10.8)
[2020-03-28 05:38] LABS: Albumin 2.1 g/dL (3.2-5.2); Albumin/Globulin Ratio 0.8 (1-3); EGFR African American 225.6 (>60); EGFR Non-African American 186.5 (>60); Globulin 2.5 g/dL (2-4); Total Bilirubin 0.5 mg/dL (0.2-1.0); Total Protein 4.6 g/dL (6.4-8.9)
[2020-03-28 05:49] LABS: Potassium 5.4 mmol/L (3.5-5.0)
[2020-03-28] MEDS ORDERED: Sodium Polystyrene ORAL.SUSP 15 GM/60 ML BTL PO ONE (08:31)
[2020-03-28] MEDS: Dexamethasone IV 4 MG/ML VIAL 1 ml VIAL IV SLOW PU SCH (09:10)
[2020-03-28] MEDS: Magic MouthWash2-BEN/MAAL/LIDO/NYST 240 ML BTL (alt formulation) SWISH SPIT SCH ×4 (09:12→20:18)
[2020-03-28 10:09] LABS: Phosphorus 1.9 mg/dL (2.5-5.0)
[2020-03-29 06:09] LABS: BUN/Creatinine Ratio 82.4 (8-20); Calcium 7.3 mg/dL (8.6-10.3); EGFR Non-African American 199.2 (>60); Potassium 4.5 mmol/L (3.5-5.0)
[2020-03-29] MEDS: Senna TAB 8.6 mg TAB PO SCH (08:45)
[2020-03-29] MEDS: Magic MouthWash2-BEN/MAAL/LIDO/NYST 240 ML BTL (alt formulation) SWISH SPIT SCH ×3 (08:47→19:50)
[2020-03-29] MEDS: Dexamethasone IV 4 MG/ML VIAL 1 ml VIAL IV SLOW PU SCH (08:48)
[2020-03-29] MEDS: Al Hydrox/Mg Hydrox/Simet LIQ 30 ML UDC PO PRN (19:54)
[2020-03-30 07:23] LABS: Anion Gap 7 mmol/L (2-11); Blood Urea Nitrogen 29 mg/dL (6-24); CO2 Carbon Dioxide 27 mmol/L (22-32); Calcium 7.2 mg/dL (8.6-10.3); Chloride 98 mmol/L (101-111); EGFR African American 278.5 (>60); EGFR Non-African American 230.1 (>60); Glucose 101 mg/dL (70-100); Potassium 3.9 mmol/L (3.5-5.0); Sodium 132 mmol/L (135-145)
[2020-03-30] MEDS: Senna TAB 8.6 mg TAB PO SCH (09:17)
[2020-03-30] MEDS: Magic MouthWash2-BEN/MAAL/LIDO/NYST 240 ML BTL (alt formulation) SWISH SPIT SCH ×4 (09:18→20:56)
[2020-03-30] MEDS: Al Hydrox/Mg Hydrox/Simet LIQ 30 ML UDC PO PRN (16:59)
[2020-03-31] MEDS: Senna TAB 8.6 mg TAB PO SCH (09:01)
[2020-03-31] MEDS: Magic MouthWash2-BEN/MAAL/LIDO/NYST 240 ML BTL (alt formulation) SWISH SPIT SCH ×4 (09:02→22:24)
[2020-03-31] MEDS: Al Hydrox/Mg Hydrox/Simet LIQ 30 ML UDC PO PRN (10:25)
[2020-03-31 17:13] LABS: Urine Appearance Cloudy; Urine Bilirubin Negative (Negative); Urine Blood Negative (Negative); Urine Color Amber; Urine Glucose Negative (Negative); Urine Ketones Negative (Negative); Urine Nitrite Negative (Negative); Urine Protein Negative (Negative); Urine Specific Gravity 1.018 (1.010-1.030); Urine Urobilinogen Positive (Negative)
[2020-04-01] MEDS: Senna TAB 8.6 mg TAB PO SCH (07:52)
[2020-04-01] MEDS: Magic MouthWash2-BEN/MAAL/LIDO/NYST 240 ML BTL (alt formulation) SWISH SPIT SCH ×4 (09:56→21:28)
[2020-04-01 11:23] LABS: Hematocrit 29 % (35-47); Hemoglobin 9.6 g/dL (12.0-16.0); Mean Corpuscular HGB Conc 33 g/dL (31-36); Mean Corpuscular Hemoglobin 27 pg (27-31); Mean Corpuscular Volume 83 fL (80-97); Mean Platelet Volume 8.5 fL (7.4-10.4); Platelet Count 148 10^3/uL (150-450); Red Blood Count 3.49 10^6 /uL (3.70-4.87); Red Cell Distribution Width 17 % (10-15); White Blood Count 2.1 10^3/uL (3.5-10.8)
[2020-04-01 11:50] LABS: ABS Lymphocytes 0.5 10^3/ul (1.0-4.8); ABS Monocytes 0.4 10^3/ul (0-0.8); ABS Neutrophils 1.2 10^3/ul (1.5-7.7); Eosinophil % 0.3 %; Nucleated Red Blood Cells % 1.9
[2020-04-01 12:32] LABS: Urine Appearance Cloudy; Urine Bilirubin Negative (Negative); Urine Blood 2+ (Negative); Urine Color Amber; Urine Glucose Negative (Negative); Urine Ketones Negative (Negative); Urine Nitrite Negative (Negative); Urine Protein 1+(30 mg/dL) (Negative); Urine Specific Gravity 1.021 (1.010-1.030); Urine Urobilinogen Positive (Negative)
[2020-04-01 12:45] LABS: Urine Bacteria 3+ (Absent); Urine Red Blood Cell 3+(>10/hpf) (Absent); Urine Squamous Epithelial Cell Present (Absent); Urine White Blood Cell 3+(>20/hpf) (Absent)
[2020-04-02] MEDS: Magic MouthWash2-BEN/MAAL/LIDO/NYST 240 ML BTL (alt formulation) SWISH SPIT SCH ×4 (09:25→20:20)
[2020-04-02] MEDS: Senna TAB 8.6 mg TAB PO SCH (09:26)
[2020-04-02] MEDS ORDERED: Morphine 2 MG/ML SYRINGE IV ONE (13:29)
[2020-04-02 15:45] LABS: Hematocrit 28 % (35-47); Hemoglobin 9.2 g/dL (12.0-16.0); Mean Corpuscular HGB Conc 33 g/dL (31-36); Mean Corpuscular Hemoglobin 28 pg (27-31); Mean Corpuscular Volume 84 fL (80-97); Mean Platelet Volume 8.6 fL (7.4-10.4); Platelet Count 158 10^3/uL (150-450); Red Blood Count 3.32 10^6 /uL (3.70-4.87); Red Cell Distribution Width 17 % (10-15); White Blood Count 6.6 10^3/uL (3.5-10.8)
[2020-04-02 16:08] LABS: Albumin/Globulin Ratio 0.8 (1-3); BUN/Creatinine Ratio 79.7 (8-20); Calcium 6.9 mg/dL (8.6-10.3); EGFR African American 116.1 (>60); Globulin 2.5 g/dL (2-4); Magnesium 2.4 mg/dL (1.9-2.7); Phosphorus 2.3 mg/dL (2.5-5.0); Potassium 4.9 mmol/L (3.5-5.0); Total Bilirubin 0.8 mg/dL (0.2-1.0); Total Protein 4.5 g/dL (6.4-8.9)
[2020-04-02 16:35] LABS: ABS Lymphocytes 0.7 10^3/ul (1.0-4.8); ABS Monocytes 0.6 10^3/ul (0-0.8); ABS Neutrophils 5.2 10^3/ul (1.5-7.7); ABS Nucleated RBC 0.2 10^3/ul; Eosinophil % 0.1 %; Lymphocyte % 10.8 %; Nucleated Red Blood Cells % 2.5
[2020-04-02] MEDS ORDERED: TPN 24 HR with D10W 1000 ml BAG 1,000 ML, Amino Acid Infusion 10% 850 ML, Sterile Water... IV SCH (17:00)
[2020-04-03 05:24] LABS: Hematocrit 27 % (35-47); Hemoglobin 8.9 g/dL (12.0-16.0); Mean Corpuscular HGB Conc 33 g/dL (31-36); Mean Corpuscular Hemoglobin 28 pg (27-31); Mean Corpuscular Volume 84 fL (80-97); Mean Platelet Volume 8.7 fL (7.4-10.4); Platelet Count 154 10^3/uL (150-450); Red Blood Count 3.23 10^6 /uL (3.70-4.87); Red Cell Distribution Width 16 % (10-15)
[2020-04-03 05:37] LABS: Albumin 1.9 g/dL (3.2-5.2); Albumin/Globulin Ratio 0.8 (1-3); Calcium 6.8 mg/dL (8.6-10.3); EGFR African American 132.8 (>60); EGFR Non-African American 109.7 (>60); Globulin 2.5 g/dL (2-4); Magnesium 2.4 mg/dL (1.9-2.7); Phosphorus 1.8 mg/dL (2.5-5.0); Potassium 4.7 mmol/L (3.5-5.0); Total Bilirubin 0.8 mg/dL (0.2-1.0); Total Protein 4.4 g/dL (6.4-8.9)
[2020-04-03 06:10] LABS: ABS Lymphocytes 0.9 10^3/ul (1.0-4.8); ABS Monocytes 0.6 10^3/ul (0-0.8); ABS Neutrophils 9.5 10^3/ul (1.5-7.7); ABS Nucleated RBC 0.1 10^3/ul; Eosinophil % 0.1 %; Lymphocyte % 7.8 %; Nucleated Red Blood Cells % 1.3
[2020-04-03] MEDS: Senna TAB 8.6 mg TAB PO SCH (09:52)
[2020-04-03] MEDS: Magic MouthWash2-BEN/MAAL/LIDO/NYST 240 ML BTL (alt formulation) SWISH SPIT SCH ×4 (09:53→21:35)
[2020-04-03 11:25] LABS: ALT 28 U/L (7-52); AST 86 U/L (13-39); Albumin 1.9 g/dL (3.2-5.2); Albumin/Globulin Ratio 0.7 (1-3); Alkaline Phosphatase 300 U/L (34-104); BUN/Creatinine Ratio 91.4 (8-20); Blood Urea Nitrogen 53 mg/dL (6-24); CO2 Carbon Dioxide 24 mmol/L (22-32); Calcium 6.9 mg/dL (8.6-10.3); Chloride 94 mmol/L (101-111); Cholesterol 60 mg/dL; EGFR African American 130.1 (>60); EGFR Non-African American 107.5 (>60); Globulin 2.6 g/dL (2-4); Glucose 127 mg/dL (70-100); Magnesium 2.5 mg/dL (1.9-2.7); Prealbumin < 3 mg/dL (18-38); Sodium 127 mmol/L (135-145); Total Protein 4.5 g/dL (6.4-8.9); Triglycerides 241 mg/dL
[2020-04-03 11:27] LABS: Anion Gap 9 mmol/L (2-11); Potassium 5.1 mmol/L (3.5-5.0)
[2020-04-03] MEDS ORDERED: ceFAZolin VIAL 2 GM in NS 0.9% 100 ml BAG 100 ML IVPB SCH (13:00)
[2020-04-03] MEDS: ceFAZolin 2 GM PREMIX 2 GM/50 ML BAG IVPB SCH ×2 (14:17→21:35)
[2020-04-03] MEDS: Ondansetron 4 mg VIAL 2 MG/ML 2 ml VIAL IV PRN ×2 (14:57→21:35)
[2020-04-03] MEDS ORDERED: TPN 24 HR with Dextrose 50% Water 500 ML, Amino Acid Infusion 10% 850 ML, Sterile Water... CENTR SCH (17:00)
[2020-04-04] MEDS: Al Hydrox/Mg Hydrox/Simet LIQ 30 ML UDC PO PRN ×2 (02:37→20:26)
[2020-04-04] MEDS: ceFAZolin 2 GM PREMIX 2 GM/50 ML BAG IVPB SCH ×3 (05:39→22:40)
[2020-04-04 05:58] LABS: Hematocrit 28 % (35-47); Mean Corpuscular HGB Conc 33 g/dL (31-36); Mean Corpuscular Hemoglobin 27 pg (27-31); Mean Corpuscular Volume 83 fL (80-97); Mean Platelet Volume 8.7 fL (7.4-10.4); Platelet Count 132 10^3/uL (150-450); Red Blood Count 3.31 10^6 /uL (3.70-4.87); Red Cell Distribution Width 17 % (10-15); White Blood Count 18.8 10^3/uL (3.5-10.8)
[2020-04-04] MEDS: Ondansetron 4 mg VIAL 2 MG/ML 2 ml VIAL IV PRN ×2 (06:02→20:26)
[2020-04-04 06:14] LABS: Prealbumin < 3 mg/dL (18-38)
[2020-04-04 06:17] LABS: ALT 23 U/L (7-52); AST 92 U/L (13-39); Albumin 1.9 g/dL (3.2-5.2); Albumin/Globulin Ratio 0.8 (1-3); Alkaline Phosphatase 546 U/L (34-104); Anion Gap 10 mmol/L (2-11); Blood Urea Nitrogen 49 mg/dL (6-24); CO2 Carbon Dioxide 20 mmol/L (22-32); Calcium 7.3 mg/dL (8.6-10.3); Chloride 98 mmol/L (101-111); Cholesterol 53 mg/dL; EGFR African American 158.1 (>60); EGFR Non-African American 130.6 (>60); Globulin 2.5 g/dL (2-4); Glucose 150 mg/dL (70-100); Magnesium 2.5 mg/dL (1.9-2.7); Phosphorus 1.8 mg/dL (2.5-5.0); Potassium 4.8 mmol/L (3.5-5.0); Sodium 128 mmol/L (135-145); Total Protein 4.4 g/dL (6.4-8.9); Triglycerides 197 mg/dL
[2020-04-04 08:41] LABS: ABS Lymphocytes 0.9 10^3/ul (1.0-4.8); ABS Monocytes 0.8 10^3/ul (0-0.8); ABS Neutrophils 17.1 10^3/ul (1.5-7.7); ABS Nucleated RBC 0.1 10^3/ul; Lymphocyte % 4.6 %; Nucleated Red Blood Cells % 0.6
[2020-04-04] MEDS ORDERED: Scopolamine PATCH Remove NOTE PATCH OFF SCH (11:00)
[2020-04-04] MEDS: Senna TAB 8.6 mg TAB PO SCH (11:43)
[2020-04-04] MEDS: Magic MouthWash2-BEN/MAAL/LIDO/NYST 240 ML BTL (alt formulation) SWISH SPIT SCH ×4 (11:47→20:55)
[2020-04-04] MEDS ORDERED: POTASSIUM CHLORIDE TPN CENT\\PICC SCH (17:00)
[2020-04-04] MEDS ORDERED: SODIUM CHLORIDE CENT\\PICC SCH (17:00)
[2020-04-04] MEDS ORDERED: [UNRECOGNIZED DRUG - OTHER] CENT\\PICC SCH (17:00)
[2020-04-04] MEDS ORDERED: TPN CENT\\PICC SCH (17:00)
[2020-04-05 05:10] LABS: Hematocrit 29 % (35-47); Hemoglobin 9.3 g/dL (12.0-16.0); Mean Corpuscular HGB Conc 32 g/dL (31-36); Mean Corpuscular Hemoglobin 27 pg (27-31); Mean Corpuscular Volume 84 fL (80-97); Mean Platelet Volume 9.1 fL (7.4-10.4); Platelet Count 121 10^3/uL (150-450); Red Blood Count 3.42 10^6 /uL (3.70-4.87); Red Cell Distribution Width 17 % (10-15); White Blood Count 25.3 10^3/uL (3.5-10.8)
[2020-04-05 05:27] LABS: ALT 16 U/L (7-52); AST 105 U/L (13-39); Albumin 1.9 g/dL (3.2-5.2); Albumin/Globulin Ratio 0.8 (1-3); Alkaline Phosphatase 396 U/L (34-104); Blood Urea Nitrogen 42 mg/dL (6-24); CO2 Carbon Dioxide 22 mmol/L (22-32); Calcium 7.9 mg/dL (8.6-10.3); Chloride 102 mmol/L (101-111); Cholesterol 57 mg/dL; EGFR African American 199.8 (>60); EGFR Non-African American 165.1 (>60); Globulin 2.5 g/dL (2-4); Glucose 146 mg/dL (70-100); Magnesium 2.4 mg/dL (1.9-2.7); Phosphorus 1.6 mg/dL (2.5-5.0); Prealbumin < 3 mg/dL (18-38); Sodium 130 mmol/L (135-145); Total Protein 4.4 g/dL (6.4-8.9); Triglycerides 225 mg/dL
[2020-04-05 05:28] LABS: Anion Gap 6 mmol/L (2-11); Potassium 5.1 mmol/L (3.5-5.0)
[2020-04-05 05:45] LABS: Polychromasia 1+
[2020-04-05 05:47] LABS: ABS Lymphocytes 1.3 10^3/ul (1.0-4.8); ABS Nucleated RBC 0.1 10^3/ul; Eosinophil % 0.1 %; Nucleated Red Blood Cells % 0.3
[2020-04-05] MEDS: ceFAZolin 2 GM PREMIX 2 GM/50 ML BAG IVPB SCH ×3 (05:55→21:44)
[2020-04-05] MEDS: Senna TAB 8.6 mg TAB PO SCH (08:51)
[2020-04-05] MEDS: Magic MouthWash2-BEN/MAAL/LIDO/NYST 240 ML BTL (alt formulation) SWISH SPIT SCH ×5 (10:56→21:37)
[2020-04-05 10:58] LABS: Uric Acid 7.6 mg/dL (2.3-6.6)
[2020-04-05] MEDS ORDERED: [UNRECOGNIZED DRUG - OTHER] CENT\\PICC SCH (17:00)
[2020-04-05] MEDS ORDERED: SODIUM CHLORIDE CENT\\PICC SCH (17:00)
[2020-04-05] MEDS ORDERED: POTASSIUM CHLORIDE TPN CENT\\PICC SCH (17:00)
[2020-04-05] MEDS ORDERED: TPN CENT\\PICC SCH (17:00)
[2020-04-05] MEDS: Ondansetron 4 mg VIAL 2 MG/ML 2 ml VIAL IV PRN ×2 (21:34→21:36)
[2020-04-06] MEDS: ceFAZolin 2 GM PREMIX 2 GM/50 ML BAG IVPB SCH ×3 (06:07→21:37)
[2020-04-06 06:54] LABS: Hematocrit 25 % (35-47); Hemoglobin 8.1 g/dL (12.0-16.0); Mean Corpuscular HGB Conc 32 g/dL (31-36); Mean Corpuscular Hemoglobin 27 pg (27-31); Mean Corpuscular Volume 84 fL (80-97); Mean Platelet Volume 9.4 fL (7.4-10.4); Platelet Count 109 10^3/uL (150-450); Red Blood Count 3.03 10^6 /uL (3.70-4.87); Red Cell Distribution Width 17 % (10-15); White Blood Count 33.2 10^3/uL (3.5-10.8)
[2020-04-06 07:06] LABS: Potassium 4.9 mmol/L (3.5-5.0)
[2020-04-06 07:12] LABS: BUN/Creatinine Ratio 112.5 (8-20); EGFR African American 199.8 (>60); EGFR Non-African American 165.1 (>60)
[2020-04-06 07:44] LABS: ABS Lymphocytes 1.7 10^3/ul (1.0-4.8); ABS Monocytes 1.1 10^3/ul (0-0.8); ABS Neutrophils 30.4 10^3/ul (1.5-7.7); ABS Nucleated RBC 0.1 10^3/ul; Lymphocyte % 5.1 %; Nucleated Red Blood Cells % 0.2
[2020-04-06] MEDS: Senna TAB 8.6 mg TAB PO SCH (08:43)
[2020-04-06] MEDS: Magic MouthWash2-BEN/MAAL/LIDO/NYST 240 ML BTL (alt formulation) SWISH SPIT SCH ×4 (09:56→21:42)
[2020-04-06 10:39] LABS: Phosphorus 2.6 mg/dL (2.5-5.0)
[2020-04-06] MEDS ORDERED: TPN CENTRAL STANDARD BASE B CENT\\PICC SCH (17:00)
[2020-04-06] MEDS: Ondansetron 4 mg VIAL 2 MG/ML 2 ml VIAL IV PRN (17:10)
[2020-04-06] MEDS ORDERED: Lactated Ringers 1000 ml BAG 1,000 ML IV ONE (22:35)
[2020-04-06] MEDS ORDERED: Piperacillin/Tazobac ADVAN 3.375 GM in NS 0.9% 100 ml BAG 100 ML IV ONE (22:37)
[2020-04-06] MEDS ORDERED: Zosyn per Pharmacy NOTE FOLLOW UP SCH (23:00)
[2020-04-07] MEDS ORDERED: ZOSYN 3.375 GM Q8H per EXTENDED INFUSION IV SCH (04:30)
[2020-04-07 05:35] LABS: Hematocrit 24 % (35-47); Hemoglobin 7.7 g/dL (12.0-16.0); Mean Corpuscular HGB Conc 33 g/dL (31-36); Mean Corpuscular Hemoglobin 27 pg (27-31); Mean Corpuscular Volume 83 fL (80-97); Mean Platelet Volume 9.5 fL (7.4-10.4); Platelet Count 127 10^3/uL (150-450); Red Blood Count 2.87 10^6 /uL (3.70-4.87); Red Cell Distribution Width 17 % (10-15); White Blood Count 33.3 10^3/uL (3.5-10.8)
[2020-04-07 05:56] LABS: BUN/Creatinine Ratio 125.7 (8-20); Calcium 7.5 mg/dL (8.6-10.3); EGFR African American 233.1 (>60); EGFR Non-African American 192.6 (>60); Magnesium 2.1 mg/dL (1.9-2.7); Phosphorus 2.3 mg/dL (2.5-5.0); Potassium 4.3 mmol/L (3.5-5.0)
[2020-04-07 07:25] LABS: ABS Lymphocytes 1.5 10^3/ul (1.0-4.8); ABS Monocytes 0.9 10^3/ul (0-0.8); ABS Neutrophils 30.9 10^3/ul (1.5-7.7); ABS Nucleated RBC 0.1 10^3/ul; Lymphocyte % 4.6 %; Nucleated Red Blood Cells % 0.3
[2020-04-07 07:27] LABS: Polychromasia 1+
[2020-04-07] MEDS: Senna TAB 8.6 mg TAB PO SCH (09:30)
[2020-04-07] MEDS: Magic MouthWash2-BEN/MAAL/LIDO/NYST 240 ML BTL (alt formulation) SWISH SPIT SCH ×4 (11:36→21:01)
[2020-04-07 12:00] LABS: C Reactive Protein 131.59 mg/L (<8.01)
[2020-04-07 12:20] LABS: ALT 8 U/L (7-52); Alkaline Phosphatase 369 U/L (34-104); BUN/Creatinine Ratio 79.6 (8-20); Blood Urea Nitrogen 39 mg/dL (6-24); CO2 Carbon Dioxide 17 mmol/L (22-32); Calcium 7.4 mg/dL (8.6-10.3); Chloride 100 mmol/L (101-111); Cholesterol 59 mg/dL; EGFR African American 158.1 (>60); EGFR Non-African American 130.6 (>60); Magnesium 2.3 mg/dL (1.9-2.7); Phosphorus 3.9 mg/dL (2.5-5.0); Sodium 123 mmol/L (135-145); Total Protein 3.2 g/dL (6.4-8.9); Triglycerides 550 mg/dL
[2020-04-07 12:50] LABS: Glucose 1232 mg/dL (70-100)
[2020-04-07 14:21] LABS: Albumin 1.3 g/dL (3.2-5.2); Albumin/Globulin Ratio 0.7 (1-3); Anion Gap 6 mmol/L (2-11); Globulin 1.9 g/dL (2-4)
[2020-04-07] MEDS ORDERED: TPN CENTRAL STANDARD BASE B CENT\\PICC SCH (17:00)
[2020-04-08 05:39] LABS: Hematocrit 26 % (35-47); Hemoglobin 7.8 g/dL (12.0-16.0); Mean Corpuscular HGB Conc 30 g/dL (31-36); Mean Corpuscular Hemoglobin 28 pg (27-31); Mean Corpuscular Volume 95 fL (80-97); Mean Platelet Volume 9.6 fL (7.4-10.4); Platelet Count 127 10^3/uL (150-450); Red Blood Count 2.76 10^6 /uL (3.70-4.87); Red Cell Distribution Width 19 % (10-15); White Blood Count 34.8 10^3/uL (3.5-10.8)
[2020-04-08 06:14] LABS: ABS Basophils 0.1 10^3/ul (0-0.2); ABS Lymphocytes 1.4 10^3/ul (1.0-4.8); ABS Neutrophils 32.3 10^3/ul (1.5-7.7); ABS Nucleated RBC 0.1 10^3/ul; Nucleated Red Blood Cells % 0.2; Polychromasia 1+
[2020-04-08 07:15] LABS: BUN/Creatinine Ratio 140.6 (8-20); Calcium 7.5 mg/dL (8.6-10.3); EGFR African American 258.5 (>60); EGFR Non-African American 213.6 (>60); Phosphorus 2.7 mg/dL (2.5-5.0); Potassium 4.2 mmol/L (3.5-5.0)
[2020-04-08] MEDS: Senna TAB 8.6 mg TAB PO SCH (09:50)
[2020-04-08] MEDS: Magic MouthWash2-BEN/MAAL/LIDO/NYST 240 ML BTL (alt formulation) SWISH SPIT SCH ×4 (09:50→20:48)
[2020-04-08] MEDS: Ondansetron 4 mg VIAL 2 MG/ML 2 ml VIAL IV PRN (12:51)
[2020-04-08] MEDS: TPN CENTRAL STANDARD BASE A CENTR SCH (18:05)
[2020-04-08] MEDS: Prochlorperazine 5 mg/ml 2 ml VIAL (10 mg) IV PRN (18:30)
[2020-04-09] MEDS: Ondansetron 4 mg VIAL 2 MG/ML 2 ml VIAL IV PRN ×3 (03:32→17:41)
[2020-04-09 06:15] LABS: ABS Lymphocytes 1.2 10^3/ul (1.0-4.8); ABS Neutrophils 35.5 10^3/ul (1.5-7.7); Hematocrit 26 % (35-47); Hemoglobin 8.2 g/dL (12.0-16.0); Mean Corpuscular HGB Conc 31 g/dL (31-36); Mean Corpuscular Hemoglobin 27 pg (27-31); Mean Corpuscular Volume 86 fL (80-97); Mean Platelet Volume 9.2 fL (7.4-10.4); Platelet Count 156 10^3/uL (150-450); Red Blood Count 3.05 10^6 /uL (3.70-4.87); Red Cell Distribution Width 17 % (10-15); White Blood Count 37.8 10^3/uL (3.5-10.8)
[2020-04-09 06:16] LABS: ABS Basophils 0.1 10^3/ul (0-0.2); ABS Nucleated RBC 0.1 10^3/ul; Lymphocyte % 3.3 %; Nucleated Red Blood Cells % 0.2
[2020-04-09 07:58] LABS: BUN/Creatinine Ratio 139.5 (8-20); C Reactive Protein 172.33 mg/L (<8.01); Calcium 7.8 mg/dL (8.6-10.3); EGFR Non-African American 175.2 (>60); Phosphorus 2.7 mg/dL (2.5-5.0); Potassium 4.8 mmol/L (3.5-5.0)
[2020-04-09] MEDS: Magic MouthWash2-BEN/MAAL/LIDO/NYST 240 ML BTL (alt formulation) SWISH SPIT SCH ×4 (08:38→21:22)
[2020-04-09] MEDS: Senna TAB 8.6 mg TAB PO SCH (08:40)
[2020-04-09] MEDS ORDERED: Enoxaparin 30 MG/0.3 ML SYR SUBCUT ONE (10:59)
[2020-04-09] MEDS: Morphine ORAL CONCENTRATE 5 MG/0.25 ML ORAL.SYRIN PO PRN ×2 (12:33→17:41)
[2020-04-09] MEDS: Dexamethasone 0.1 MG/ML ORALSYR PO SCH ×3 (13:13→21:21)
[2020-04-09] MEDS: TPN CENTRAL STANDARD BASE A CENTR SCH (17:03)
[2020-04-09] MEDS: Nystatin SUSPENSION 100,000 UNITS/ML UDC PO SCH (21:20)
[2020-04-10 06:12] LABS: Hematocrit 25 % (35-47); Hemoglobin 7.5 g/dL (12.0-16.0); Mean Corpuscular HGB Conc 30 g/dL (31-36); Mean Corpuscular Hemoglobin 29 pg (27-31); Mean Corpuscular Volume 95 fL (80-97); Mean Platelet Volume 9.7 fL (7.4-10.4); Platelet Count 155 10^3/uL (150-450); Red Blood Count 2.61 10^6 /uL (3.70-4.87); Red Cell Distribution Width 19 % (10-15)
[2020-04-10 06:15] LABS: ABS Monocytes 0.7 10^3/ul (0-0.8); ABS Neutrophils 31.3 10^3/ul (1.5-7.7); ABS Nucleated RBC 0.1 10^3/ul; Lymphocyte % 2.9 %; Nucleated Red Blood Cells % 0.3
[2020-04-10 07:51] LABS: BUN/Creatinine Ratio 176.5 (8-20); Calcium 8.1 mg/dL (8.6-10.3); EGFR Non-African American 199.2 (>60)
[2020-04-10 08:17] LABS: Potassium 5.1 mmol/L (3.5-5.0)
[2020-04-10] MEDS: Dexamethasone 0.1 MG/ML ORALSYR PO SCH ×4 (09:05→21:38)
[2020-04-10] MEDS: Senna TAB 8.6 mg TAB PO SCH (09:06)
[2020-04-10] MEDS: Nystatin SUSPENSION 100,000 UNITS/ML UDC PO SCH ×3 (09:06→21:38)
[2020-04-10] MEDS: Magic MouthWash2-BEN/MAAL/LIDO/NYST 240 ML BTL (alt formulation) SWISH SPIT SCH ×4 (09:06→21:38)
[2020-04-10] MEDS ORDERED: TPN 24 HR with Dextrose 50% Water 500 ML, Amino Acid Infusion 10% 850 ML, Sterile Water... CENTR SCH (12:00)
[2020-04-10] MEDS: Ondansetron 4 mg VIAL 2 MG/ML 2 ml VIAL IV PRN (12:27)
[2020-04-10] MEDS: NS 0.9% 1000 ml BAG 1,000 ML IV SCH (14:28)
[2020-04-10] MEDS: Morphine ORAL CONCENTRATE 5 MG/0.25 ML ORAL.SYRIN PO PRN (16:34)
[2020-04-10] MEDS: TPN 24 HR with Dextrose 50% Water 500 ML, Amino Acid Infusion 10% 850 ML, Sterile Water... CENTR SCH (16:37)
[2020-04-10] MEDS: Morphine 2 MG/ML SYRINGE IV PRN (18:48)
[2020-04-11] MEDS: NS 0.9% 1000 ml BAG 1,000 ML IV SCH ×3 (02:00→20:44)
[2020-04-11] MEDS: Morphine 2 MG/ML SYRINGE IV PRN ×4 (03:48→23:58)
[2020-04-11] MEDS: Ondansetron 4 mg VIAL 2 MG/ML 2 ml VIAL IV PRN ×3 (03:48→17:34)
[2020-04-11] MEDS: Dexamethasone 0.1 MG/ML ORALSYR PO SCH ×4 (08:51→20:52)
[2020-04-11] MEDS: Magic MouthWash2-BEN/MAAL/LIDO/NYST 240 ML BTL (alt formulation) SWISH SPIT SCH ×4 (08:52→20:52)
[2020-04-11] MEDS: Nystatin SUSPENSION 100,000 UNITS/ML UDC PO SCH ×3 (08:53→20:52)
[2020-04-11] MEDS: Senna TAB 8.6 mg TAB PO SCH (09:08)
[2020-04-11] MEDS: TPN 24 HR with Dextrose 50% Water 500 ML, Amino Acid Infusion 10% 850 ML, Sterile Water... CENTR SCH (16:38)
[2020-04-11] MEDS: Prochlorperazine 5 mg/ml 2 ml VIAL (10 mg) IV PRN (23:56)
[2020-04-12] MEDS: NS 0.9% 1000 ml BAG 1,000 ML IV SCH (07:16)
[2020-04-12] MEDS: Morphine 2 MG/ML SYRINGE IV PRN (09:43)
[2020-04-12] MEDS: Senna TAB 8.6 mg TAB PO SCH (09:52)
[2020-04-12] MEDS: Magic MouthWash2-BEN/MAAL/LIDO/NYST 240 ML BTL (alt formulation) SWISH SPIT SCH ×3 (09:52→16:26)
[2020-04-12] MEDS: Ondansetron 4 mg VIAL 2 MG/ML 2 ml VIAL IV PRN (09:52)
[2020-04-12] MEDS: Nystatin SUSPENSION 100,000 UNITS/ML UDC PO SCH ×2 (09:52→12:02)
[2020-04-12] MEDS: Dexamethasone 0.1 MG/ML ORALSYR PO SCH ×3 (09:52→16:26)
[2020-04-12] MEDS: Morphine ORAL CONCENTRATE 5 MG/0.25 ML ORAL.SYRIN PO PRN ×2 (10:59→17:27)
[2020-04-12 17:37] VITALS: BP 80/52
[2020-04-12] MEDS ORDERED: Morphine ORAL CONCENTRATE 5 MG/0.25 ML ORAL.SYRIN PO PRN (17:40)
== END 2020-04-12 18:55 | disposition expired | DRG 64 ==
LOC: MEDTELE 15:13 → ED 15:13 → OBSVTOIN 21:10 → MEDTELE 03-22 23:13
PROVIDERS: ADMIT Internal Medicine; ATTEND Internal Medicine